=== PATIENT | female | born 1960 | race Caucasian/White ===

== ENCOUNTER 2018-05-28 15:34 | Emergency (ER) | payer OTHER ==
[~2018-05-28] VITALS: Ht 162.6 cm; Wt 68.0 kg
--- NOTE | ~2018-05-28 | EKG ---
[address] [address] ELECTROCARDIOGRAM REPORT Name: AHMET GANT Room #: KERI Evangelista#: [id number] Admission: 05/28/18 Attend Phys: Discharge: 05/28/18 Date of : 62 Report #: [id number] THIS REPORT FOR: //name// [facility] ED Test Date: 2018-05-28 Test Time: 16:16:16 Pat Name: AHMET GANT Department: Room: Gender: F Banana Grader: GANESH : 1960 Requested By: Singh Gresham Order Number: [id number] MD: Aubrey Barron Measurements Intervals [place] Rate: 65 P: 50 WA: 125 QRS: 57 QRSD: 98 T: 46 QT: 380 QTc: 396 Interpretive Statements Sinus rhythm No previous ECG available for comparison Electronically Signed On 05-29-2018 10:24:23 LINE COOK by Aubrey Barron [email or web address] <ELECTRONICALLY SIGNED> By: Aubrey Barron MD 05/29/18 1024 1616 1616 Aubrey Barron MD /EPI
[2018-05-28 16:17] LABS: ABSOLUTE NEUTROPHILS 10.2 thou/uL (1.4-8.2); BASOPHILS 0.2 % (0.0-2.0); HEMOGLOBIN 15.9 gm/dL (12.0-15.0); LYMPHOCYTES 17.3 % (24.0-44.0); MCH 32.8 pg (26.0-34.0); MCHC 33.8 g/dL (28.0-37.0); MONOCYTES 5.2 % (1.0-8.0); PLATELET COUNT 267 thou/uL (150-400); POLYS 77.3 % (36.0-66.0); RBC 4.84 mil/uL (4.20-5.00); RDW 13.1 % (10.5-14.5); WBC 13.1 thou/uL (4.0-11.0)
[2018-05-28 16:27] LABS: ANION GAP 9 mmol/L (7-16); BUN 22 mg/dL (7-18); CALCIUM 10.1 mg/dL (8.5-10.1); CHLORIDE 102 mmol/L (98-107); CO2 27 mmol/L (21-32); CREATININE 0.9 mg/dL (0.6-1.0); GLUCOSE 114 mg/dL (74-106); POTASSIUM 4.4 mmol/L (3.5-5.1); SODIUM 138 mmol/L (136-145)
[2018-05-28 16:35] LABS: ALBUMIN 4.5 g/dL (3.4-5.0); SGOT 22 U/L (15-37); SGPT 27 U/L (30-65); TOTAL BILIRUBIN 0.3 mg/dL (<0.1-1.0); TOTAL PROTEIN 8.4 g/dL (6.4-8.2); TROPONIN-I <0.06 ng/mL (<0.06)
[2018-05-28] MEDS ORDERED: HYDROCODONE-AP1 EAC6 PO (17:52)
[2018-05-28] MEDS ORDERED: AZITHROMYCIN 2250 MG PO (17:52)
[2018-05-28 18:43] VITALS: BP 139/68
== END 2018-05-28 18:45 | disposition home or self-care (01) ==
LOC: ER 15:34
PROVIDERS: Emergency Medicine
DX: J20.9 Acute bronchitis, unspecified (principal); R09.1 Pleurisy; J43.9 Emphysema, unspecified; F12.90 Cannabis use, unspecified, uncomplicated; Z88.0 Allergy status to penicillin; Z88.2 Allergy status to sulfonamides; Z88.8 Allergy status to other drugs, medicaments and biological substances; Z90.710 Acquired absence of both cervix and uterus

== ENCOUNTER 2018-09-24 17:55 | Emergency (ER) | payer OTHER ==
[~2018-09-24] VITALS: Ht 162.6 cm; Wt 68.0 kg
[~2018-09-24 17:55] MED LIST: AZITHROMYCIN 2250 MG PO; HYDROCODONE-AP1 EAC6 PO
[2018-09-24 18:42] LABS: ABSOLUTE NEUTROPHILS 3.3 thou/uL (1.4-8.2); BASOPHILS 0.9 % (0.0-2.0); EOSINOPHILS 3.4 % (0.0-3.0); HEMATOCRIT 44.7 % (37.0-47.0); HEMOGLOBIN 15.6 gm/dL (12.0-15.0); LYMPHOCYTES 40.3 % (24.0-44.0); MCH 33.4 pg (26.0-34.0); MCHC 34.9 g/dL (28.0-37.0); MONOCYTES 8.6 % (1.0-8.0); PLATELET COUNT 219 thou/uL (150-400); POLYS 46.8 % (36.0-66.0); RBC 4.66 mil/uL (4.20-5.00); RDW 12.9 % (10.5-14.5); WBC 7.1 thou/uL (4.0-11.0)
[2018-09-24 18:49] LABS: ANION GAP 11 mmol/L (7-16); BUN 12 mg/dL (7-18); CALCIUM 9.1 mg/dL (8.5-10.1); CHLORIDE 106 mmol/L (98-107); CO2 24 mmol/L (21-32); CREATININE 0.7 mg/dL (0.6-1.0); GLUCOSE 104 mg/dL (74-106); POTASSIUM 4.4 mmol/L (3.5-5.1); SODIUM 141 mmol/L (136-145)
[2018-09-24 18:58] LABS: TROPONIN-I <0.06 ng/mL (<0.06)
[2018-09-24] MEDS ORDERED: PREDNISONE 20 M20 MG PO (19:52)
[2018-09-24] MEDS ORDERED: IBUPROFEN 600600 M1 PO (19:52)
[2018-09-24] MEDS ORDERED: NORCO 5-325 TA1 EACH PO (19:52)
[2018-09-24 20:12] VITALS: BP 140/71
--- NOTE | 2018-09-25 11:54 | EKG ---
[place] [address] [facility] [place] [address] ELECTROCARDIOGRAM REPORT Name: JEFF GANTLY Room #: DEP PETER Evangelista#: [id number] ������������������ Admission: 09/24/18 ������������������ Attend Phys: Discharge: 09/24/18 ������������������ Date of : 62 Report #: [id number] ����������������������������������������������������������������� [id number] THIS REPORT FOR: //name// [facility] ED Test Date: 2018-09-24 Test Time: 18:56:38 Pat Name: AHMET GANT Department: Room: Gender: F Partner Management Consultant: : 1960 Requested By: Kiet Michelle Order Number: [id number] MD: Kojo Jimenes Measurements Intervals [place] Rate: 84 P: 57 DE: 140 QRS: 55 QRSD: 87 T: 36 QT: 360 QTc: 426 Interpretive Statements Sinus rhythm Normal tracing Compared to ECG 05/28/2018 16:16:16 No significant changes Electronically Signed On 09-25-2018 11:53:56 CDT by Kojo Jimenes [email or web address] ��������������������������������������������� <ELECTRONICALLY SIGNED> ���������������������������������������� By: Kojo Jimeens MD, [facility] ��������������������������������������������� 09/25/18 1153 1856 1856 Kojo Jimenes MD, FACC /EPI
== END 2018-09-24 20:14 | disposition home or self-care (01) ==
LOC: ER 17:55
PROVIDERS: Emergency Medicine
DX: R09.1 Pleurisy (principal); J43.9 Emphysema, unspecified; Z88.0 Allergy status to penicillin; Z88.2 Allergy status to sulfonamides; Z88.6 Allergy status to analgesic agent; Z88.8 Allergy status to other drugs, medicaments and biological substances

== ENCOUNTER 2020-09-09 07:11 | Emergency (ER) | payer OTHER ==
[~2020-09-09] VITALS: Ht 165.1 cm; Wt 68.0 kg
[~2020-09-09 07:11] MED LIST changes: +IBUPROFEN 600600 M1 PO; +NORCO 5-325 TA1 EACH PO; +PREDNISONE 20 M20 MG PO
[2020-09-09 08:01] LABS: ABSOLUTE NEUTROPHILS 8.1 thou/uL (1.4-8.2); BASOPHILS 0.5 % (0.0-2.0); EOSINOPHILS 2.5 % (0.0-3.0); HEMOGLOBIN 15.5 gm/dL (12.0-15.0); LYMPHOCYTES 29.9 % (24.0-44.0); MCH 31.7 pg (26.0-34.0); MCHC 33.8 g/dL (28.0-37.0); MCV 93.9 fL (80.0-100.0); MONOCYTES 7.6 % (1.0-8.0); PLATELET COUNT 322 thou/uL (150-400); POLYS 59.5 % (36.0-66.0); RDW 12.9 % (10.5-14.5); WBC 13.6 thou/uL (4.0-11.0)
[2020-09-09 08:05] LABS: CALCIUM 9.4 mg/dL (8.5-10.1)
[2020-09-09 11:32] LABS: URINE BILIRUBIN NEGATIVE (Negative); URINE BLOOD 2+ (Negative); URINE CLARITY CLEAR; URINE COLOR YELLOW; URINE GLUCOSE-RANDOM* NEGATIVE (Negative); URINE KETONES 1+ (Negative); URINE LEUKOCYTES-REFLEX TRACE (Negative); URINE NITRITE-REFLEX NEGATIVE (Negative); URINE PROTEIN (DIPSTICK) TRACE (Negative); URINE SPECIFIC GRAVITY >= 1.030 (1.005-1.035); URINE UROBILINOGEN 0.2 E.U./dl (0.2-1.0)
[2020-09-09 11:43] LABS: BACTERIA-REFLEX 1-9 Few /HPF (None Seen); CRYSTALS None Seen /LPF (None Seen); HYALINE CASTS 0-3 Few /LPF (None Seen); SQUAMOUS 0-3 Few /LPF (0-3); URINE RBC 0-2 Rare /HPF (0-2); URINE WBC-REFLEX 0-5 Rare /HPF (0-5)
[2020-09-09] MEDS ORDERED: NORCO 10-325 T1 EACH PO (11:57)
[2020-09-09] MEDS ORDERED: MACROBID 100 M100 M1 PO (11:57)
[2020-09-09] MEDS ORDERED: IBU600 MG PO (11:57)
[2020-09-09 12:14] VITALS: BP 134/74
== END 2020-09-09 12:16 | disposition home or self-care (01) ==
LOC: ER 07:11
PROVIDERS: Emergency Medicine
DX: R10.9 Unspecified abdominal pain (principal); M54.5 Low back pain; M54.6 Pain in thoracic spine; J44.9 Chronic obstructive pulmonary disease, unspecified; Z90.710 Acquired absence of both cervix and uterus; Z90.89 Acquired absence of other organs; Z79.1 Long term (current) use of non-steroidal anti-inflammatories (NSAID); Z79.899 Other long term (current) drug therapy; Z88.0 Allergy status to penicillin; Z88.2 Allergy status to sulfonamides; Z88.8 Allergy status to other drugs, medicaments and biological substances